=== PATIENT | female | born 1945 | race Caucasian/White ===

== ENCOUNTER → 2022-07-08 | Outpatient (CLI) | payer OTHER ==
[~2022-07-08] MED LIST: IOPAMIDOL 200 MG/ML 20 ML VIAL IT ONE; IOPAMIDOL 300 MG/ML 15ML VIAL IT ONE
[2022-07-08 12:31] LABS: INR 0.93; PARTIAL THROMBOPLASTIN TIME 31.5 seconds (23.8-35.5)
[2022-07-08 12:42] LABS: CREATININE, SERUM 0.89 mg/dL (0.57-1.11)
== END ==
LOC: DX 11:49
PROVIDERS: ATTEND Specialist
DX: M54.32 Sciatica, left side (principal)
CPT/HCPCS: 36415; 62304; 72132; 82565; 84520; 85014; 85049; 85610; 85730; Q9967 ×2